=== PATIENT | female | born 1975 | race Caucasian/White ===

== ENCOUNTER 2016-12-14 16:14 | Emergency (ER) | payer SELFPAY ==
[~2016-12-14] VITALS: Ht 157.5 cm; Wt 99.8 kg
[~2016-12-14 16:14] MED LIST: AZIT250T6 PO; BENZ100C PO; PRED50TA PO; PROAIR HFA8.5 GM INH
[2016-12-14 16:28] VITALS: BP 121/57
[2016-12-14] MEDS ORDERED: FLUT9.9S NS (16:34)
--- NOTE | 2016-12-14 16:35 | PHYS DOC ---
Past Medical History Past Medical History: High Cholesterol, Hypertension, Migraines Past Surgical History: Hysterectomy, Other Additional Past Surgical Histo: LEFT ANKLE SX Xs 2 Alcohol Use: Rarely Drug Use: None Adult General Chief Complaint Chief Complaint: EARACHE/EAR PAIN HPI HPI Patient is a 41 year old female presents to the emergency department with a three-day history of right ear pain. She states she's had issues with the ear for several weeks but the pain began 3 days ago. She is not Using any over-the- counter medications in 10 to alleviate her symptoms. Review of Systems Review of Systems Constitutional: Denies fever or chills [] Eyes: Denies change in visual acuity, redness, or eye pain [] HENT: Denies nasal congestion or sore throat, complaining right ear pain [] Respiratory: Denies cough or shortness of breath [] Cardiovascular: No additional information not addressed in HPI [] GI: Denies abdominal pain, nausea, vomiting, bloody stools or diarrhea [] : Denies dysuria or hematuria [] Musculoskeletal: Denies back pain or joint pain [] Integument: Denies rash or skin lesions [] Neurologic: Denies headache, focal weakness or sensory changes [] Endocrine: Denies polyuria or polydipsia [] Allergies Allergies Allergies Coded Allergies Type Severity Reaction Last Updated Verified No Known Drug Allergies 06/01/16 No Physical Exam Physical Exam Constitutional: Well developed, well nourished, no acute distress, non-toxic appearance. [] HENT: Normocephalic, atraumatic, bilateral external ears normal, right tympanic membrane with effusion, left external canal with cerumen impaction oropharynx moist, no oral exudates, multiple teeth with decay, no gingival erythema or swelling, nose normal. [] Eyes: PERRLA, EOMI, conjunctiva normal, no discharge. [] Neck: Normal range of motion, no tenderness, supple, no stridor. [] Cardiovascular:Heart rate regular rhythm, no murmur [] Lungs & Thorax: Bilateral breath sounds clear to auscultation [] Skin: Warm, dry, no erythema, no rash. [] Extremities: No tenderness, no cyanosis, no clubbing, ROM intact, no edema. [] Neurologic: Alert and oriented X 3, normal motor function, normal sensory function, no focal deficits noted. [] Psychologic: Affect normal, judgement normal, mood normal. [] Current Patient Data Vital Signs Vital Signs Date Time Temp Pulse Resp B/P (MAP) Pulse Ox O2 Delivery O2 Flow Rate FiO2 12/14/16 16:28 98.2 56 20 96 Room Air 98.2 EKG EKG [] Radiology/Procedures Radiology/Procedures [] Course & Med Decision Making Course & Med Decision Making Pertinent Labs and Imaging studies reviewed. (See chart for details) [] Dragon Disclaimer Dragon Disclaimer This electronic medical record was generated, in whole or in part, using a voice recognition dictation system. Departure Departure Impression: Primary Impression: Eustachian tube dysfunction Disposition: HOME, SELF-CARE Condition: STABLE Referrals: UNKNOWN PCP NAME (PCP) Patient Instructions: Allergies, Generic, Otalgia Additional Instructions: [id number] sinus decongestant as labeled and is indicated for symptom management Scripts Fluticasone Propionate (Flonase Allergy Relief) 9.9 Ml [place].susp 2 SPRAYS NS DAILY, #1 BOTTLE Prov: NAFISA PEREYRA APRN 12/14/16 NAFISA PEREYRA APRN Dec 14, 2016 16:35
== END 2016-12-14 16:38 | disposition home or self-care (01) ==
LOC: ER 16:14
DX: H69.81 Other specified disorders of Eustachian tube, right ear (principal); G43.909 Migraine, unspecified, not intractable, without status migrainosus; E78.00 Pure hypercholesterolemia, unspecified; I10 Essential (primary) hypertension
CPT/HCPCS: 99282

== ENCOUNTER 2018-04-24 10:48 | Emergency (ER) | payer SELFPAY ==
[~2018-04-24] VITALS: Ht 160 cm; Wt 95.3 kg
[~2018-04-24 10:48] MED LIST changes: +FLUT9.9S NS
--- NOTE | 2018-04-24 11:18 | EKG ---
[facility] [address] [place] [address] Test Date: 2018-04-24 Test Time: 10:56:00 Pat Name: TERRY JUDGE Department: Room: Gender: F Enroller: : 1975 Requested By: SARINA LINCOLN Order Number: [id number] Reading MD: Taiwo Guerra Measurements Intervals [place] Rate: 53 P: -17 PA: 200 QRS: 7 QRSD: 86 T: 39 QT: 434 QTc: 409 Interpretive Statements SINUS RHYTHM NO SPECIFIC ECG ABNORMALITIES Electronically Signed On 04-24-2018 15:52:07 RAILROAD SIGNAL TECHNICIAN by Taiwo Guerra
[2018-04-24 11:34] LABS: BASO % 0 % (0-3); EOS # 0.1 x10^3/uL (0.0-0.7); EOS % 2 % (0-3); HEMATOCRIT 37.5 % (36.0-47.0); HEMOGLOBIN 13.2 g/dL (12.0-15.5); LYMPH # 2.1 x10^3/uL (1.0-4.8); LYMPH % 39 % (24-48); MEAN CORPUSCULAR HEMOGLOBIN 32 pg (25-35); MEAN CORPUSCULAR HGB CONC 35 g/dL (31-37); MEAN CORPUSCULAR VOLUME 91 fL (79-100); MONO # 0.5 x10^3/uL (0.0-1.1); MONO % 9 % (0-9); NEUT # 2.6 x10^3uL (1.8-7.7); NEUT % 49 % (31-73); PLATELET COUNT 270 x10^3/uL (140-400); RED CELL DISTRIBUTION WIDTH 12.8 % (11.5-14.5); WHITE BLOOD COUNT 5.3 x10^3/uL (4.0-11.0)
[2018-04-24 11:44] LABS: CALCIUM 8.9 mg/dL (8.5-10.1); CREATININE 0.6 mg/dL (0.6-1.0); GFR 110.2; POTASSIUM 4.2 mmol/L (3.5-5.1)
[2018-04-24 11:50] LABS: ALBUMIN 3.9 g/dL (3.4-5.0); ALBUMIN/GLOBULIN RATIO 1.2 (1.0-1.7); TOTAL PROTEIN 7.1 g/dL (6.4-8.2)
--- NOTE | 2018-04-24 11:59 | RAD ---
CHEST PA LATERAL History: Pt states developed mid chest pain while at grocery store this am. Comparison: None. Findings: The cardiomediastinal silhouette is normal. Pulmonary vasculature is normal. The lungs are clear. No pleural effusion or pneumothorax is seen. There is no acute bone abnormality. IMPRESSION: No acute cardiopulmonary process. Electronically signed by: Lázaro Rodriguez MD (04/24/2018 11:56 AM) [id number]
--- NOTE | 2018-04-24 12:07 | PHYS DOC ---
Past Medical History Past Medical History: Depression, High Cholesterol, Hypertension, Migraines Past Surgical History: Cholecystectomy, Hysterectomy, Other Additional Past Surgical Histo: LEFT ANKLE SX Xs 2 Alcohol Use: Rarely Drug Use: None Adult General Chief Complaint Chief Complaint: PLEURISY HPI HPI Patient is a 43 year old [f__sex] who presents with [] Review of Systems Review of Systems Constitutional: Denies fever or chills [] Eyes: Denies change in visual acuity, redness, or eye pain [] HENT: Denies nasal congestion or sore throat [] Respiratory: Denies cough or shortness of breath [] Cardiovascular: No additional information not addressed in HPI [] GI: Denies abdominal pain, nausea, vomiting, bloody stools or diarrhea [] : Denies dysuria or hematuria [] Musculoskeletal: Denies back pain or joint pain [] Integument: Denies rash or skin lesions [] Neurologic: Denies headache, focal weakness or sensory changes [] Endocrine: Denies polyuria or polydipsia [] All other systems were reviewed and found to be within normal limits, except as documented in this note. Allergies Allergies Allergies Coded Allergies Type Severity Reaction Last Updated Verified No Known Drug Allergies 06/01/16 No Physical Exam Physical Exam Constitutional: Well developed, well nourished, no acute distress, non-toxic appearance. [] HENT: Normocephalic, atraumatic, bilateral external ears normal, oropharynx moist, no oral exudates, nose normal. [] Eyes: PERRLA, EOMI, conjunctiva normal, no discharge. [] Neck: Normal range of motion, no tenderness, supple, no stridor. [] Cardiovascular:Heart rate regular rhythm, no murmur [] Lungs & Thorax: Bilateral breath sounds clear to auscultation [] Abdomen: Bowel sounds normal, soft, no tenderness, no masses, no pulsatile masses. [] Skin: Warm, dry, no erythema, no rash. [] Back: No tenderness, no CVA tenderness. [] Extremities: No tenderness, no cyanosis, no clubbing, ROM intact, no edema. [] Neurologic: Alert and oriented X 3, normal motor function, normal sensory function, no focal deficits noted. [] Psychologic: Affect normal, judgement normal, mood normal. [] Current Patient Data Vital Signs Vital Signs Date Time Temp Pulse Resp B/P (MAP) Pulse Ox O2 Delivery O2 Flow Rate FiO2 04/24/18 11:00 97.9 60 14 132/74 (93) 97 Room Air 97.9 Lab Values Laboratory Tests Test 04/24/18 11:20 White Blood Count 5.3 x10^3/uL (4.0-11.0) Red Blood Count 4.10 x10^6/uL (3.50-5.40) Hemoglobin 13.2 g/dL (12.0-15.5) Hematocrit 37.5 % (36.0-47.0) Mean Corpuscular Volume 91 fL (79-100) Mean Corpuscular Hemoglobin 32 pg (25-35) Mean Corpuscular Hemoglobin Concent 35 g/dL (31-37) Red Cell Distribution Width 12.8 % (11.5-14.5) Platelet Count 270 x10^3/uL (140-400) Neutrophils (%) (Auto) 49 % (31-73) Lymphocytes (%) (Auto) 39 % (24-48) Monocytes (%) (Auto) 9 % (0-9) Eosinophils (%) (Auto) 2 % (0-3) Basophils (%) (Auto) 0 % (0-3) Neutrophils # (Auto) 2.6 x10^3uL (1.8-7.7) Lymphocytes # (Auto) 2.1 x10^3/uL (1.0-4.8) Monocytes # (Auto) 0.5 x10^3/uL (0.0-1.1) Eosinophils # (Auto) 0.1 x10^3/uL (0.0-0.7) Basophils # (Auto) 0.0 x10^3/uL (0.0-0.2) D-Dimer (Eri) < 0.27 ug/mlFEU Sodium Level 139 mmol/L (136-145) Potassium Level 4.2 mmol/L (3.5-5.1) Chloride Level 102 mmol/L (98-107) Carbon Dioxide Level 27 mmol/L (21-32) Anion Gap 10 (6-14) Blood Urea Nitrogen 8 mg/dL (7-20) Creatinine 0.6 mg/dL (0.6-1.0) Estimated GFR (Cockcroft-Gault) 110.2 BUN/Creatinine Ratio 13 (6-20) Glucose Level 94 mg/dL (70-99) Calcium Level 8.9 mg/dL (8.5-10.1) Total Bilirubin 1.0 mg/dL (0.2-1.0) Aspartate Amino Transferase (AST) 18 U/L (15-37) Alanine Aminotransferase (ALT) 34 U/L (14-59) Alkaline Phosphatase 50 U/L (46-116) Troponin I Quantitative < 0.017 ng/mL (0.000-0.055) Total Protein 7.1 g/dL (6.4-8.2) Albumin 3.9 g/dL (3.4-5.0) Albumin/Globulin Ratio 1.2 (1.0-1.7) Laboratory Tests 04/24/18 11:20 Laboratory Tests 04/24/18 11:20 EKG EKG [] Radiology/Procedures Radiology/Procedures [] Course & Med Decision Making Course & Med Decision Making Pertinent Labs and Imaging studies reviewed. (See chart for details) [] Dragon Disclaimer Dragon Disclaimer This electronic medical record was generated, in whole or in part, using a voice recognition dictation system. Departure Departure Impression: Primary Impression: Pleurisy Disposition: 01 HOME, SELF-CARE Condition: STABLE Referrals: UNKNOWN PCP NAME (PCP) Patient Instructions: Pleurisy Additional Instructions: Increase fluids and rest. Use a humidifier at night while you're sleeping to moisturize the air. You may take ibuprofen as an anti-inflammatory to help with pain control. Follow-up with your primary care provider in one week if not improving or return to the emergency department if worsening. SARINA LINCOLN FINANCIAL ANALYSIS MANAGER Apr 24, 2018 12:07
[2018-04-24 12:26] VITALS: BP 121/61
== END 2018-04-24 12:56 | disposition home or self-care (01) ==
LOC: ER 10:48
DX: R09.1 Pleurisy (principal); F32.9 Major depressive disorder, single episode, unspecified; E78.00 Pure hypercholesterolemia, unspecified; I10 Essential (primary) hypertension; G43.909 Migraine, unspecified, not intractable, without status migrainosus; Z90.49 Acquired absence of other specified parts of digestive tract; Z90.710 Acquired absence of both cervix and uterus
CPT/HCPCS: 36415; 71046; 80053; 84484; 85025; 85379; 93005; 99284

== ENCOUNTER 2018-09-02 14:24 | Emergency (ER) | payer SELFPAY ==
[~2018-09-02] VITALS: Ht 160 cm; Wt 95.3 kg
[~2018-09-02 14:24] MED LIST changes: +ALBU2.5V8 INH; -PROAIR HFA8.5 GM INH
--- NOTE | 2018-09-02 15:39 | PHYS DOC ---
Past Medical History Past Medical History: Depression, High Cholesterol, Hypertension, Migraines Past Surgical History: Cholecystectomy, Hysterectomy, Other Additional Past Surgical Histo: LEFT ANKLE SX Xs 2 Alcohol Use: Rarely Drug Use: None Adult General Chief Complaint Chief Complaint: ABDOMINAL PAIN HPI HPI 43-year-old female presents to ER with complaints of waking this morning with right lower abdominal pain. Patient states she has had a partial hysterectomy still has her right ovary with history of endometriosis. She states she took ibuprofen this morning with some improvement in pain. She denies any urinary symptoms. She denies concerns for STDs stating she has had no vaginal symptoms. Patient denies any sexual intercourse for the past 48 hours. She reports she felt fine when she went to bed last night and pain woke her up this morning. She denies any vomiting or diarrhea episodes. She reports when pain was at its highest she did feel slightly nauseated. She states she has not had any type of fever or flulike illness. Review of Systems Review of Systems Constitutional: Denies fever or chills [] Eyes: Denies change in visual acuity, redness, or eye pain [] HENT: Denies nasal congestion or sore throat [] Respiratory: Denies cough or shortness of breath [] Cardiovascular: No additional information not addressed in HPI [] GI: Denies vomiting, bloody stools or diarrhea. Reports rt low abd/suprapubic area pain with nausea when pain was severe : Denies dysuria or hematuria [] Musculoskeletal: Denies back pain or joint pain [] Integument: Denies rash or skin lesions [] Neurologic: Denies headache, focal weakness or sensory changes [] All other systems were reviewed and found to be within normal limits, except as documented in this note. Current Medications Current Medications Current Medications Medications (Trade) Dose Ordered Sig/Leatha Start Time Stop Time Status Last Admin Dose Admin Fentanyl Citrate (Fentanyl 2ml Vial) 25 mcg 1X ONCE 09/02/18 15:45 09/02/18 15:46 DC 09/02/18 15:50 25 MCG Allergies Allergies Allergies Coded Allergies Type Severity Reaction Last Updated Verified No Known Drug Allergies 06/01/16 No Physical Exam Physical Exam Constitutional: Well developed, well nourished, no acute distress, non-toxic appearance. [] HENT: Normocephalic, atraumatic, oropharynx moist, no oral exudates, nose normal. [] Eyes: Pupils equal, conjunctiva normal, no discharge. [] Neck: Normal range of motion, no tenderness, supple, no stridor. [] Cardiovascular: Heart rate regular rhythm, no murmur [] Lungs & Thorax: Bilateral breath sounds clear to auscultation. Resp. equal/ nonlabored Abdomen: Bowel sounds normal, soft-no distention or rigidity, tender to palpation mid suprapubic into right lower abdomen without rebound tenderness, no masses, no pulsatile masses. [] Skin: Warm, dry, no erythema, no rash. [] Back: No tenderness, no CVA tenderness. [] Extremities: No tenderness, no cyanosis, no clubbing, ROM intact, no edema. [] Neurologic: Alert and oriented X 3, normal motor function, normal sensory function, no focal deficits noted. [] Psychologic: Affect normal, judgement normal, mood normal. [] Current Patient Data Vital Signs Vital Signs Date Time Temp Pulse Resp B/P (MAP) Pulse Ox O2 Delivery O2 Flow Rate FiO2 09/02/18 18:00 68 20 149/86 (107) 97 Room Air 09/02/18 14:49 97.7 97.7 Lab Values Laboratory Tests Test 09/02/18 15:20 09/02/18 15:24 09/02/18 15:31 09/02/18 18:41 Urine Collection Type Unknown Urine Color Yellow Urine Clarity Clear Urine pH 6.0 Urine Specific [place] >=1.030 Urine Protein Negative mg/dL (NEG-TRACE) Urine Glucose (UA) Negative mg/dL (NEG) Urine Ketones (Stick) Negative mg/dL (NEG) Urine Blood Negative (NEG) Urine Nitrite Negative (NEG) Urine Bilirubin Negative (NEG) Urine Urobilinogen Dipstick 1.0 mg/dL (0.2 mg/dL) Urine Leukocyte Esterase Negative (NEG) Urine RBC 0 /HPF (0-2) Urine WBC Occ /HPF (0-4) Urine Squamous Epithelial Cells Mod /LPF Urine Bacteria Few /HPF (0-FEW) Urine Mucus Marked /LPF POC Urine HCG, Qualitative Hcg negative (Negative) White Blood Count 7.7 x10^3/uL (4.0-11.0) 7.4 x10^3/uL (4.0-11.0) Red Blood Count 4.12 x10^6/uL (3.50-5.40) 4.02 x10^6/uL (3.50-5.40) Hemoglobin 13.0 g/dL (12.0-15.5) 12.5 g/dL (12.0-15.5) Hematocrit 37.9 % (36.0-47.0) 36.8 % (36.0-47.0) Mean Corpuscular Volume 92 fL (79-100) 92 fL (79-100) Mean Corpuscular Hemoglobin 31 pg (25-35) 31 pg (25-35) Mean Corpuscular Hemoglobin Concent 34 g/dL (31-37) 34 g/dL (31-37) Red Cell Distribution Width 13.1 % (11.5-14.5) 13.1 % (11.5-14.5) Platelet Count 254 x10^3/uL (140-400) 227 x10^3/uL (140-400) Neutrophils (%) (Auto) 60 % (31-73) Lymphocytes (%) (Auto) 29 % (24-48) Monocytes (%) (Auto) 7 % (0-9) Eosinophils (%) (Auto) 3 % (0-3) Basophils (%) (Auto) 1 % (0-3) Neutrophils # (Auto) 4.7 x10^3uL (1.8-7.7) Lymphocytes # (Auto) 2.2 x10^3/uL (1.0-4.8) Monocytes # (Auto) 0.6 x10^3/uL (0.0-1.1) Eosinophils # (Auto) 0.3 x10^3/uL (0.0-0.7) Basophils # (Auto) 0.0 x10^3/uL (0.0-0.2) Sodium Level 136 mmol/L (136-145) Potassium Level 3.7 mmol/L (3.5-5.1) Chloride Level 101 mmol/L (98-107) Carbon Dioxide Level 29 mmol/L (21-32) Anion Gap 6 (6-14) Blood Urea Nitrogen 10 mg/dL (7-20) Creatinine 0.4 mg/dL (0.6-1.0) L Estimated GFR (Cockcroft-Gault) 175.9 BUN/Creatinine Ratio 25 (6-20) H Glucose Level 87 mg/dL (70-99) Calcium Level 8.7 mg/dL (8.5-10.1) Total Bilirubin 1.0 mg/dL (0.2-1.0) Aspartate Amino Transferase (AST) 18 U/L (15-37) Alanine Aminotransferase (ALT) 24 U/L (14-59) Alkaline Phosphatase 48 U/L (46-116) Total Protein 7.6 g/dL (6.4-8.2) Albumin 3.8 g/dL (3.4-5.0) Albumin/Globulin Ratio 1.0 (1.0-1.7) Laboratory Tests 09/02/18 15:31 09/02/18 18:41 Laboratory Tests 09/02/18 15:31 EKG EKG [] Radiology/Procedures Radiology/Procedures PROCEDURE: PELVIS W/TV Pelvic ultrasound including transvaginal scanning 09/02/2018. Reason for exam: Right-sided pain. History of hysterectomy and left oophorectomy. Initial scanning was done through the patient's abdominal wall. There was poor bladder filling. The vaginal cuff is partly seen and appears normal. No free fluid or adnexal mass is evident. Transvaginal scanning was performed to better evaluate the adnexal structures. By transvaginal scanning, the cervix appears normal. The right ovary is seen and contains cysts, including a large simple cyst measuring 3.8 cm in greatest dimension. There is some blood flow in the ovary. There is moderate free fluid adjacent to the right ovary with a small amount of debris visible internally. No separate adnexal mass is seen. IMPRESSION: The right ovary contains cysts, including a 3.8 cm simple cyst. There is moderate free fluid and debris that may indicate blood. Electronically signed by: Aristeo Curiel Jr., MD (09/02/2018 5:45 PM) [facility] DICTATED and SIGNED BY: ARISTEO CURIEL Jr, MD DATE: 09/02/18 174 Course & Med Decision Making Course & Med Decision Making Pertinent Labs and Imaging studies reviewed. (See chart for details) 1813: Spoke with Dr. Truong, ACCELERATOR OPERATOR statement distribution clerk and discussed pt's case and US results- with blood flow seen rt ovary along with "The right ovary contains cysts, including a 3.8 cm simple cyst. There is moderate free fluid and debris that may indicate blood". Will repeat CBC to recheck her H&H and if stable will d/c home with pt to f/u at his clinic this week. WBCs 7.7 no bands. UA neg. for infection. 1900: H&H repeat is 12.5/36.8 initial was 13.0/37.9. Pt is reporting her rt lower abd pain is minimal at this time and she is having no nausea. She is in no visible distress and is comfortable with home discharge. Will provide patient with prescription for pain medication and she was advised of plans for her to call and follow-up with Dr. Truong's office this week. Education provided on signs and symptoms to return to ER. Discharge instructions were discussed. Patient to follow-up with primary care physician if symptoms persist or with any concerns. Dragon Disclaimer Dragon Disclaimer This electronic medical record was generated, in whole or in part, using a voice recognition dictation system. Departure Departure Impression: Primary Impression: Ovarian cyst Additional Impressions: Rupture of ovarian cyst Abdominal pain Disposition: HOME, SELF-CARE Condition: STABLE Referrals: UNKNOWN PCP NAME (PCP) ARISTEO TRUONG Jr, MD Patient Instructions: Abdominal Pain, Ovarian Cyst Additional Instructions: As discussed you to follow-up this week in Dr. Truong's office for re- evaluation and further care. Warm compress to right lower abdomen every 3-4 hours for 20-30 minutes at a time. Drink plenty of fluids. Scripts Hydrocodone/Apap 5-325 (NORCO 5-325 TABLET) 1 Each Tablet 1 TAB PO PRN Q6HRS PRN for PAIN, #12 TAB 0 Refills No drinking alcohol or driving while taking this medication Prov: ADELITA BONILLA APRN 09/02/18 Problem Qualifiers ADELITA BONILLA APRN Sep 02, 2018 15:39
[2018-09-02] MEDS ORDERED: fentaNYL PF VIAL 100 MCG/2 ML VIAL IV ONE (15:45)
[2018-09-02 15:54] LABS: BASO % 1 % (0-3); EOS # 0.3 x10^3/uL (0.0-0.7); EOS % 3 % (0-3); HEMATOCRIT 37.9 % (36.0-47.0); LYMPH # 2.2 x10^3/uL (1.0-4.8); LYMPH % 29 % (24-48); MEAN CORPUSCULAR HEMOGLOBIN 31 pg (25-35); MEAN CORPUSCULAR HGB CONC 34 g/dL (31-37); MEAN CORPUSCULAR VOLUME 92 fL (79-100); MONO # 0.6 x10^3/uL (0.0-1.1); MONO % 7 % (0-9); NEUT # 4.7 x10^3uL (1.8-7.7); NEUT % 60 % (31-73); PLATELET COUNT 254 x10^3/uL (140-400); RED BLOOD COUNT 4.12 x10^6/uL (3.50-5.40); RED CELL DISTRIBUTION WIDTH 13.1 % (11.5-14.5); WHITE BLOOD COUNT 7.7 x10^3/uL (4.0-11.0)
[2018-09-02 15:56] LABS: BILIRUBIN,URINE NEGATIVE (NEG); CLARITY,URINE CLEAR; COLOR,URINE YELLOW; NITRITE,URINE NEGATIVE (NEG); PROTEIN,URINE NEGATIVE (NEG-TRACE)
[2018-09-02 16:00] LABS: CALCIUM 8.7 mg/dL (8.5-10.1); CREATININE 0.4 mg/dL (0.6-1.0); GFR 175.9; POTASSIUM 3.7 mmol/L (3.5-5.1)
[2018-09-02 16:06] LABS: ALBUMIN 3.8 g/dL (3.4-5.0); TOTAL PROTEIN 7.6 g/dL (6.4-8.2)
[2018-09-02 16:06] LABS: BACTERIA,URINE FEW /HPF (0-FEW); SQUAMOUS EPITHELIAL CELL,UR MOD /LPF
[2018-09-02 16:07] LABS: RBC,URINE 0 /HPF (0-2); WBC,URINE OCC /HPF (0-4)
--- NOTE | 2018-09-02 17:48 | RAD ---
Pelvic ultrasound including transvaginal scanning 09/02/2018. Reason for exam: Right-sided pain. History of hysterectomy and left oophorectomy. Initial scanning was done through the patient's abdominal wall. There was poor bladder filling. The vaginal cuff is partly seen and appears normal. No free fluid or adnexal mass is evident. Transvaginal scanning was performed to better evaluate the adnexal structures. By transvaginal scanning, the cervix appears normal. The right ovary is seen and contains cysts, including a large simple cyst measuring 3.8 cm in greatest dimension. There is some blood flow in the ovary. There is moderate free fluid adjacent to the right ovary with a small amount of debris visible internally. No separate adnexal mass is seen. IMPRESSION: The right ovary contains cysts, including a 3.8 cm simple cyst. There is moderate free fluid and debris that may indicate blood. Electronically signed by: Aristeo Curiel Jr., MD (09/02/2018 5:45 PM) [facility]
[2018-09-02 18:00] VITALS: BP 149/86
[2018-09-02 18:46] LABS: HEMATOCRIT 36.8 % (36.0-47.0); HEMOGLOBIN 12.5 g/dL (12.0-15.5); RED BLOOD COUNT 4.02 x10^6/uL (3.50-5.40); RED CELL DISTRIBUTION WIDTH 13.1 % (11.5-14.5); WHITE BLOOD COUNT 7.4 x10^3/uL (4.0-11.0)
[2018-09-02] MEDS ORDERED: HYDR-3164 PO (19:05)
== END 2018-09-02 19:16 | disposition home or self-care (01) ==
LOC: ER 14:24
DX: N83.201 Unspecified ovarian cyst, right side (principal); F32.9 Major depressive disorder, single episode, unspecified; E78.00 Pure hypercholesterolemia, unspecified; I10 Essential (primary) hypertension; G43.909 Migraine, unspecified, not intractable, without status migrainosus; Z90.49 Acquired absence of other specified parts of digestive tract; Z90.710 Acquired absence of both cervix and uterus
CPT/HCPCS: 36415; 76830; 76856; 80053; 81001; 81025; 85025; 85027; 96374; 99284; J3010

== ENCOUNTER 2018-11-19 08:57 | Emergency (ER) | payer SELFPAY ==
[~2018-11-19] VITALS: Ht 160 cm; Wt 90.7 kg
[~2018-11-19 08:57] MED LIST changes: +HYDR-3164 PO
[2018-11-19 09:03] VITALS: BP 110/62
[2018-11-19] MEDS ORDERED: SURGICEL HEMOSTAT 4X8 EACH. TP ONE (09:30)
[2018-11-19] MEDS ORDERED: GELATIN SPONGE SIZE 12-7MM SPONGE. TP ONE (10:15)
--- NOTE | 2018-11-19 10:44 | PHYS DOC ---
Past Medical History Past Medical History: Depression, High Cholesterol, Hypertension, Migraines Past Surgical History: Cholecystectomy, Hysterectomy, Other Additional Past Surgical Histo: LEFT ANKLE SX Xs 2 Alcohol Use: Rarely Drug Use: None Adult General Chief Complaint Chief Complaint: FINGER INJURY HPI HPI 43-year-old female presents to ER for complaints of right small finger bleeding. She reports she's had a blood blister in the past with similar presentation and she had issues with getting the bleeding to stop. Patient states last night she had area on the palm surface of her right small finger which opened and has been bleeding since. Patient denies injury. Patient denies any bleeding disorders or been on daily blood thinners. Patient denies pain. Pt denies injury. Review of Systems Review of Systems Constitutional: Denies fatigue : Denies dysuria or hematuria [] Musculoskeletal: Denies joint pain [] Integument: Reports open wound tip of rt 5th finger w/bleeding Neurologic: Denies focal weakness or sensory changes. Denies dizziness All other systems were reviewed and found to be within normal limits, except as documented in this note. Current Medications Current Medications Current Medications Medications (Trade) Dose Ordered Sig/Leatha Start Time Stop Time Status Last Admin Dose Admin Cellulose (Surgicel Hemostat 4x8) 1 each 1X ONCE 11/19/18 09:30 11/19/18 09:33 DC 11/19/18 09:45 1 EACH Gelatin (Gelfoam Size 12-7mm) 1 each 1X ONCE 11/19/18 10:15 11/19/18 10:16 DC 11/19/18 10:47 1 EACH Lidocaine/ Epinephrine (LIDOCAINE 1%-EPI 1:100,000 Multi-Dose) 20 ml 1X ONCE 11/19/18 10:45 11/19/18 10:46 DC 11/19/18 10:47 20 ML Allergies Allergies Allergies Coded Allergies Type Severity Reaction Last Updated Verified No Known Drug Allergies 06/01/16 No Physical Exam Physical Exam Constitutional: Well developed, well nourished, no acute distress, non-toxic appearance. [] HENT: Normocephalic, atraumatic, oropharynx moist, nose normal. [] Eyes: Pupils equal, conjunctiva normal, no discharge. [] Neck: Normal range of motion, no tenderness, supple, no stridor. [] Cardiovascular: Heart rate regular Lungs & Thorax: Resp. equal/nonlabored Skin: Warm, dry, no erythema, no rash. [] Extremities: No tenderness, no cyanosis, no clubbing, ROM intact, no edema. 2+ radial rt upper extremity- brisk cap refill rt hand. Distal tip rt 5th finger with small wound with active bleeding- no ecchymosis or swelling. Neurologic: Alert and oriented X 3, normal motor function, normal sensory function, no focal deficits noted. [] Psychologic: Affect normal, judgement normal, mood normal. [] Current Patient Data Vital Signs Vital Signs Date Time Temp Pulse Resp B/P (MAP) Pulse Ox O2 Delivery O2 Flow Rate FiO2 11/19/18 09:03 98.2 75 16 110/62 (78) 97 Room Air 98.2 EKG EKG [] Radiology/Procedures Radiology/Procedures [] Course & Med Decision Making Course & Med Decision Making Following initial application of Surgicel patient continued to have bleeding so had discussed injection of lidocaine with epi with patient at site of bleeding. However on reevaluation following second application of Surgicel foam there was no active bleeding at site to right distal tip of fifth finger on the right hand. Patient continues to deny any pain or dizziness. Patient remains PMS intact in right upper extremity. Home wound care was discussed and patient to follow-up with her primary care physician for reevaluation as needed. Education provided on signs and symptoms to return to ER. Discharge instructions were discussed. Patient to follow-up with primary care physician if symptoms persist or with any concerns. Dragon Disclaimer Dragon Disclaimer This electronic medical record was generated, in whole or in part, using a voice recognition dictation system. Departure Departure Impression: Primary Impression: Bleeding from finger Disposition: 01 HOME, SELF-CARE Condition: STABLE Referrals: NO PCP (PCP) Patient Instructions: Wound Care, [id number] Additional Instructions: You were evaluated in the ER for bleeding on your right small finger. You had Surgicel foam applied which forms a small scab-like type of covering to the bleeding site- do not pull/pick this off as it will come off on it's own. The dressing off 2-3 times a day to monitor site for signs of infection avoiding pulling on the Surgicel. Follow-up with your primary care physician for reevaluation and further care as needed and with concerns. ADELITA BONILLA APRN Nov 19, 2018 10:43
[2018-11-19] MEDS ORDERED: LIDOCAINE 1%/EPI 1:100,000 20 ML VIAL. INJ ONE (10:45)
== END 2018-11-19 11:23 | disposition home or self-care (01) ==
LOC: ER 08:57
DX: S61.206A Unspecified open wound of right little finger without damage to nail, initial encounter (principal); E78.00 Pure hypercholesterolemia, unspecified; I10 Essential (primary) hypertension; G43.909 Migraine, unspecified, not intractable, without status migrainosus; F32.9 Major depressive disorder, single episode, unspecified; Z90.49 Acquired absence of other specified parts of digestive tract; Z90.710 Acquired absence of both cervix and uterus; X58.XXXA Exposure to other specified factors, initial encounter; Y93.89 Activity, other specified; Y92.89 Other specified places as the place of occurrence of the external cause; Y99.8 Other external cause status
CPT/HCPCS: 99283; J3490

== ENCOUNTER 2019-07-30 00:47 | Emergency (ER) | payer SELFPAY ==
[~2019-07-30] VITALS: Ht 160 cm; Wt 72.7 kg
[2019-07-30 00:59] VITALS: BP 135/82
[2019-07-30] MEDS ORDERED: DEXAMETHASONE SOD PHOS 20 MG/5 ML VIAL. PO ONE (01:30)
[2019-07-30] MEDS ORDERED: ORPHENADRINE CITRATE 60 MG/2 ML VIAL. IM ONE (01:30)
[2019-07-30] MEDS ORDERED: KETOROLAC 60 MG/2 ML VIAL. IM ONE (01:30)
--- NOTE | 2019-07-30 01:39 | PHYS DOC ---
Past Medical History Past Medical History: Depression, High Cholesterol, Hypertension, Migraines (FLORENTINO CONTI APRN) Past Surgical History: Cholecystectomy, Hysterectomy, Other Additional Past Surgical Histo: LEFT ANKLE SX Xs 2 (FLORENTINO CONTI APRN) Smoking Status: Never Smoker Alcohol Use: Rarely Drug Use: None (FLORENTINO CONTI APRN) Attending Signature I have participated in the care of this patient and I have reviewed and agree with all pertinent clinical information above including history, exam, and recommendations. (SANDRA MCDOWELL MD) Adult General Chief Complaint Chief Complaint: HEADACHE HPI HPI Patient is a 44 year old female who presents to the emergency department with complaints of right-sided migraine for the last 2-3 days. Patient states she has tried taking ibuprofen and Aleve at home without any improvement in her symptoms. She denies any numbness, tingling, weakness, nausea, vomiting, abdominal pain, cough, shortness of breath, photosensitivity, sore throat, or ear pain. Patient states that her vision has been blurry in both of her eyes but is worse in the right eye. She reports that she recently received a new prescription and her eyeglasses less than 4 months ago. She denies seeing any f loaters or visual aura. She currently rates her pain 8 out of 10 on the pain scale, she denies any alleviating factors. (FLORENTINO CONTI APRN) Review of Systems Review of Systems Complete ROS is negative unless otherwise noted in HPI. (FLORENTINO CONTI APRN) Current Medications Current Medications Current Medications Medications (Trade) Dose Ordered Sig/Leatha Start Time Stop Time Status Last Admin Dose Admin Dexamethasone Sodium Phosphate (Decadron) 10 mg 1X ONCE 07/30/19 01:30 07/30/19 01:31 DC 07/30/19 01:33 10 MG Ketorolac Tromethamine (Toradol Im) 60 mg 1X ONCE 07/30/19 01:30 07/30/19 01:31 DC 07/30/19 01:34 60 MG Orphenadrine Citrate (Norflex) 60 mg 1X ONCE 07/30/19 01:30 07/30/19 01:31 DC 07/30/19 01:34 60 MG (SANDRA MCDOWELL MD) Allergies Allergies Allergies Coded Allergies Type Severity Reaction Last Updated Verified No Known Drug Allergies 06/01/16 No (SANDRA MCDOWELL MD) Physical Exam Physical Exam See Above Constitutional: Well developed, well nourished, no acute distress, non-toxic appearance, obese. [] HENT: Normocephalic, atraumatic, bilateral external ears normal, oropharynx moist, no oral exudates, nose normal. [] Eyes: PERRLA, EOMI, conjunctiva normal, no discharge. [] Neck: Normal range of motion, no stridor. [] Cardiovascular:Heart rate regular rhythm, no murmur [] Lungs & Thorax: Bilateral breath sounds clear to auscultation, Respirations even and unlabored, no retractions, no respiratory distress] Skin: Warm, dry, no erythema, no rash. [] Back: No tenderness Extremities: No cyanosis, ROM intact Neurologic: Alert and oriented X 3, CN II- CN VII intact, no focal deficits noted. [] Psychologic: Affect normal, judgement normal, mood normal. [] (FLORENTINO CONTI APRN) Current Patient Data Vital Signs Vital Signs Date Time Temp Pulse Resp B/P (MAP) Pulse Ox O2 Delivery O2 Flow Rate FiO2 07/30/19 00:59 97.6 74 16 135/82 (99) 98 Room Air 97.6 (SANDRA MCDOWELL MD) EKG EKG [] (FLORENTINO CONTI APRN) Radiology/Procedures Radiology/Procedures [] (FLORENTINO CONTI APRN) Course & Med Decision Making Course & Med Decision Making Pertinent Labs and Imaging studies reviewed. (See chart for details) 0048- patient reports decreased pain after medications states she is feeling better and would like to go home. Patient is a 44-year-old female who presented to the emergency room with complaints of a right-sided headache for the last 2-3 days with blurred vision is worse in her right eye. Patient reported a history of migraines, she states this headache was similar to her previous migraines. Was given 60 mg of IM Norflex, 30 mg of IM Toradol, and 10 mg of by mouth Decadron. She is encouraged follow-up with her primary care doctor. Return to the ER symptoms worsen. Patient verbalized an understanding of home care, medications, follow-up, and return to ED instructions and was in agreement with the plan of care. [] (FLORENTINO CONTI APRN) Dragon Disclaimer Dragon Disclaimer This electronic medical record was generated, in whole or in part, using a voice recognition dictation system. (FLORENTINO CONTI APRN) Departure Departure Impression: Primary Impression: Migraine headache Disposition: HOME, SELF-CARE Condition: STABLE Referrals: NO PCP (PCP) Patient Instructions: Recurrent Migraine Headache, [id number] Additional Instructions: Home to rest in a dark, quiet room. Follow up with your primary care doctor this week. Return to the ER if your symptoms worsen. Problem Qualifiers Primary Impression: Migraine headache Migraine type: unspecified Status migrainosus presence: without status migrainosus Intractability: not intractable Qualified Codes: G43.909 - Migraine, unspecified, not intractable, without status migrainosus FLORENTINO CONTI APRN Jul 30, 2019 01:39 SANDRA MCDOWELL MD Jul 30, 2019 04:12
== END 2019-07-30 02:02 | disposition home or self-care (01) ==
LOC: ER 00:47
DX: G43.909 Migraine, unspecified, not intractable, without status migrainosus (principal); E78.00 Pure hypercholesterolemia, unspecified; I10 Essential (primary) hypertension
CPT/HCPCS: 96372; 99284; J1100; J1885; J2360